=== PATIENT | female | born 1975 | race Caucasian/White ===

== ENCOUNTER 2018-03-05 10:52 | Emergency (ER) | payer BC, OTHER ==
[2018-03-05 11:02] VITALS: BP 155/74
--- NOTE | 2018-03-05 11:17 | UC ---
[facility] HPI - HPI Summary HPI Summary: Pt presents with broken tooth on right lower side. This occurred about a month ago. Pain started on 02/19 - she has been taking ibuprofen with no relief. Pain has gotten worse over the last 3 days. She has an appointment next week with her dentist. She is still able to eat and drink. Denies fever, chills, SOB, chest pain. - History of Current Complaint Chief Complaint: UCDentalProblem Stated Complaint: DENTAL Time Seen by Provider: 03/05/18 11:16 Hx Obtained From: Patient Hx Last Menstrual Period: 03/01/18 Onset/Duration: Gradual Onset Severity: Severe Pain Intensity: 8 Pain Scale Used: 0-10 Numeric - Allergies/Home Medications Allergies/Adverse Reactions: Allergies Allergy/AdvReac Type Severity Reaction Status Date / Time No Known Allergies Allergy Verified 03/05/18 10:58 Home Medications: Home Medications Ibuprofen TAB* [Advil TAB*] 600 mg PO Q8HR PRN 03/05/18 [History Confirmed 03/05] PMH/Surg Hx/FS Hx/Imm Hx - Additional Past Medical History Additional PMH: None - Surgical History Surgical History: Yes Surgery Procedure, Year, and Place: plate and 5 screws in left ankle. hernia repair (umbilical). 2 c-sections - Family History Known Family History: Positive: None - Social History Occupation: Employed Full-time Lives: With Family Alcohol Use: Rare Substance Use Type: None Smoking Status (MU): Heavy Every Day Tobacco Smoker Type: Cigarettes Amount Used/How Often: 1/2PPD Length of Time of Smoking/Using Tobacco: 11 years Household Exposure Type: Cigarettes - Immunization History Most Recent Influenza Vaccination: 2012 Review of Systems Constitutional: Negative Skin: Negative Eyes: Negative ENT: Dental Pain Respiratory: Negative Cardiovascular: Negative Gastrointestinal: Negative Neurovascular: Negative Neurological: Negative Psychological: Negative All Other Systems Reviewed And Are Negative: Yes Physical Exam Triage Information Reviewed: Yes Appearance: Well-Appearing, No Pain Distress, Well-Nourished Vital Signs: Initial Vital Signs Temp 97.5 F 03/05/18 10:58 Pulse 74 03/05/18 10:58 Resp 18 03/05/18 10:58 BP 155/74 03/05/18 10:58 Pulse Ox 99 03/05/18 10:58 Vital Signs Reviewed: Yes ENT: Positive: Pharynx normal, Dental tenderness - Tooth 31, Uvula midline. Negative: Pharyngeal erythema, Tonsillar swelling, Tonsillar exudate Dental: Positive: Percussion Tenderness @ - Tooth 31, Gross Decay/Caries @ - Throughout, Dental Fracture @ - Tooth 31 with exposed nerve root. Negative: Cellulitis @, Cervical Lymphadenopathy, Bleeding Neck: Positive: Supple, Nontender, No Lymphadenopathy Respiratory: Positive: Normal breath sounds, No respiratory distress, No accessory muscle use Cardiovascular: Positive: RRR, Pulses Normal Neurological: Positive: Alert Psychological: Positive: Age Appropriate Behavior Skin: Negative: rashes, significant lesion(s) Dental Complaint Course/Dx - Course Course Of Treatment: iSTOP Reference #: [id number]. Tooth 31 fracture with exposed nerve root. - Differential Dx/Diagnosis Provider Diagnoses: Tooth 31 fracture with exposed nerve root Discharge - Sign-Out/Discharge Documenting (check all that apply): Discharge/Admit/Transfer - Discharge Plan Condition: Stable Disposition: HOME Prescriptions: Amoxicillin PO (*) [Amoxicillin 500 MG CAP*] 500 mg PO Q12H #20 cap HYDROcodone/ACETAMIN 5-325 MG* [Harrison 5-325 TAB*] 1 tab PO BID PRN #10 tab MDD 2 PRN Reason: Pain Magic Mouth Was-REVA/MAAL/LIDO* 5 ml SWISH SPIT QID PRN #100 ml PRN Reason: Pain Patient Education Materials: Toothache (ED) [facility] - Additional Instructions: If you develop a fever, shortness of breath, chest pain, new or worsening symptoms - please call your PCP or go to the ED. Your blood pressure was high at todays visit. Please see your primary provider within 4 weeks for recheck and re-evaluation. 1) Please keep your follow up with your dentist next week - Billing Disposition and Condition Condition: STABLE Disposition: HOME
== END 2018-03-05 11:32 | disposition home or self-care (01) ==
LOC: UCEAST 10:52
DX: K03.81 Cracked tooth (principal); F17.210 Nicotine dependence, cigarettes, uncomplicated
CPT/HCPCS: 99212; G0463

== ENCOUNTER 2018-12-18 16:20 | Emergency (ER) | payer BC ==
--- NOTE | 2018-12-18 16:33 | ED ---
Respiratory - HPI Summary HPI Summary: cough for the last three weeks, - History of Current Complaint Stated Complaint: COUGH Time Seen by Provider: 12/18/18 16:25 Hx Obtained From: Patient Onset/Duration: Gradual Onset, Lasting Weeks Initial Severity: Moderate Current Severity: Moderate Character: Wheezing, Cough (Nonproductive), Dyspnea on Exertion Sputum Amount: Scant Sputum Color: Clear Aggravating Factor(s): Exertion Alleviating Factor(s): Rest - Risk Factors Status Asthmaticus Risk Factors: Negative Pulmonary Embolism Risk Factors: Negative Cardiac Risk Factors: Negative - Allergy/Home Medications Allergies/Adverse Reactions: Allergies Allergy/AdvReac Type Severity Reaction Status Date / Time No Known Allergies Allergy Verified 12/18/18 16:47 Home Medications: Home Medications DULoxetine DR CAP* [Cymbalta CAP*] 30 mg PO DAILY 12/18/18 [History Confirmed ] PMH/Surg Hx/FS Hx/Imm Hx Previously Healthy: Yes Endocrine/Hematology History: Denies: Hx Diabetes, Hx Thyroid Disease Cardiovascular History: Denies: Hx Hypertension Respiratory History: Denies: Hx Asthma, Hx Chronic Obstructive Pulmonary Disease (COPD) GI History: Denies: Hx Ulcer Psychiatric History: Reports: Hx Depression - Surgical History Surgery Procedure, Year, and Place: plate and 5 screws in left ankle. hernia repair (umbilical). 2 c-sections Infectious Disease History: Denies: Hx Hepatitis, Hx Human Immunodeficiency Virus (HIV), History Other Infectious Disease, Traveled Outside the [place] in Last 30 Days - Family History Known Family History: Positive: None - Social History Alcohol Use: Rare Substance Use Type: Reports: None Smoking Status (MU): Heavy Every Day Tobacco Smoker Type: Cigarettes Amount Used/How Often: 1/2PPD Length of Time of Smoking/Using Tobacco: 11 years Review of Systems Constitutional: Negative Eyes: Negative ENT: Negative Cardiovascular: Negative Respiratory: Other Positive: Shortness Of Breath, Cough Gastrointestinal: Negative Genitourinary: Negative Musculoskeletal: Negative All Other Systems Reviewed And Are Negative: Yes Physical Exam Triage Information Reviewed: Yes Vital Signs Reviewed: Yes Appearance: Positive: Well-Appearing Skin: Positive: Warm, Dry Head/Face: Positive: Normal Head/Face Inspection Eyes: Positive: Normal ENT: Positive: Normal ENT inspection Neck: Positive: Supple Respiratory/Lung Sounds: Positive: Clear to Auscultation, Breath Sounds Present Cardiovascular: Positive: Normal Abdomen Description: Positive: Nontender Bowel Sounds: Positive: Present Musculoskeletal: Positive: Normal Neurological: Positive: Normal Disposition - Diagnoses Provider Diagnoses: Acute bronchitis Discharge - Sign-Out/Discharge Documenting (check all that apply): Patient Departure All imaging exams completed and their final reports reviewed: Yes - Discharge Plan Condition: Fair Disposition: HOME Prescriptions: Albuterol HFA INHALER* [Ventolin HFA Inhaler*] 2 puff INH Q6H PRN 30 Days #1 mdi MDD 8 PRN Reason: Cough Amoxicillin PO (*) [Amoxicillin 875 MG (*)] 875 mg PO BID 7 Days #14 tab Referrals: Susy Harris MD [Primary Care Provider] - - Billing Disposition and Condition Condition: FAIR Disposition: Home
[2018-12-18 16:47] VITALS: BP 140/73
[2018-12-18 17:07] LABS: Influenza A Molecular NEGATIVE (Negative); Influenza B Molecular NEGATIVE (Negative)
== END 2018-12-18 17:15 | disposition home or self-care (01) ==
LOC: UCEAST 16:20
DX: J20.9 Acute bronchitis, unspecified (principal); F32.9 Major depressive disorder, single episode, unspecified; F17.210 Nicotine dependence, cigarettes, uncomplicated
CPT/HCPCS: 71046; 99211; G0463